=== PATIENT | female | born 1990 | race Caucasian/White ===

== ENCOUNTER 2021-11-27 11:19 | Emergency (ER) | payer OTHER ==
[2021-11-27 11:54] LABS: HEMOGLOBIN 12.1 gm/dl (12.3-15.3); RED BLOOD COUNT 3.92 M/UL (4.00-5.10); WHITE BLOOD COUNT 7.5 K/UL (4.5-11.0)
[2021-11-27 12:20] LABS: BUN/CREATININE RATIO 18 (0-10)
== END 2021-11-27 12:54 | disposition home or self-care (01) ==
LOC: ER1 11:19
PROVIDERS: Emergency Medicine
DX: R07.89 Other chest pain (principal); F17.290 Nicotine dependence, other tobacco product, uncomplicated; Z88.0 Allergy status to penicillin
CPT/HCPCS: 71045; 80053; 82550; 82553; 83874; 84484; 85025; 93005; 99285

== ENCOUNTER → 2022-03-07 | Outpatient (CLI) | payer OTHER | LOC: EMI 09:55 | DX: R94.7 Abnormal results of other endocrine function studies (principal) | CPT/HCPCS: 70553; A9577 ==